=== PATIENT | female | born 1945 | race Caucasian/White ===

== ENCOUNTER 2016-09-09 10:44 | Outpatient (CLI) | payer MEDICARE ==
[2016-09-09 12:18] LABS: #Basophils 0.2 thou/uL (0.0-0.2); #Eosinphils 0.4 thou/uL (0.0-0.7); #Lymphocytes 2.7 thou/uL (1.20-3.40); #Monocytes 0.7 thou/uL (0.11-0.59); #Neutrophils 6.9 thou/uL (1.40-6.50); %Basophils 1.5 % (0.0-1.0); %Eosinophils 3.3 % (0.0-10.0); %Lymphocytes 24.9 % (21.0-51.0); %Neutrophils 64.3 % (42.0-75.0); Hemoglobin 14.7 g/dL (12.0-16.0); Mean Corpuscular Hemoglobin 28.1 pg (27.0-31.0); Mean Corpuscular Volume 87.6 fl (81.0-99.0); Mean Platelet Volume 8.9 fL (7.4-10.4); Platelet Count 351 thou/uL (130-400); RBC Distribution Width 13.6 % (11.5-14.5); Red Blood Cell (RBC) Count 5.24 mill/uL (4.20-5.40); White Blood Cell (WBC) Count 10.8 thou/uL (4.8-10.8)
[2016-09-09 12:31] LABS: ALT (SGPT) 24 U/L (8-55); AST (SGOT) 22 U/L (5-34); Albumin 4.3 g/dL (3.4-4.8); Alkaline Phosphatase 87 U/L (40-150); Anion Gap 16 mmol/L (10-20); BUN (Urea Nitrogen) 16 mg/dL (9.8-20.1); Bilirubin, Total 0.5 mg/dL (0.2-1.2); Calc. Creatinine Clearance 0 mL/min (70-130); Calcium 9.7 mg/dL (7.8-10.44); Carbon Dioxide 26 mmol/L (23-31); Cardiac Risk 3.8 (Less than 4.5); Chloride 104 mmol/L (98-107); Cholesterol 255 mg/dl (< 200 Desired); Estimated GFR-MDRD 63; Globulin 3.3 g/dL (2.4-3.5); Glucose 92 mg/dL (80-115); HDL Cholesterol 67 mg/dL (>60 Neg Risk); LDL Cholesterol, Calculated 153 mg/dL; Potassium 4.3 mmol/L (3.5-5.1); Protein, Total 7.6 g/dL (6.0-8.3); Sodium 142 mmol/L (136-145); Triglycerides 174 mg/dL (Less than 150)
[2016-09-09 13:12] LABS: Thyroid Stimulating Hormone 2.7353 uIU/mL (0.35-4.94)
== END 2016-09-09 10:45 ==
LOC: HPCALD 10:44
PROVIDERS: ATTEND Family Medicine
DX: Z11.59 Encounter for screening for other viral diseases (principal); I10 Essential (primary) hypertension; E78.5 Hyperlipidemia, unspecified; E55.9 Vitamin D deficiency, unspecified
CPT/HCPCS: 36415; 80053; 80061; 82306; 84443; 85025

== ENCOUNTER 2020-03-23 22:33 | Emergency (ER) | payer MEDICARE, OTHER ==
[~2020-03-23 22:33] MED LIST: Iopamidol 370 76% 100 ML VIAL ONE
[2020-03-23] MEDS ORDERED: Ondansetron ODT 4 MG TAB ONE (22:52)
[2020-03-23] MEDS ORDERED: Metoclopramide HCl 10 MG/2 ML VIAL ONE (23:19)
[2020-03-23] MEDS ORDERED: Fentanyl 100 MCG/2 ML VIAL ONE ×2 (23:19→23:56)
[2020-03-23 23:23] LABS: #Basophils 0.2 thou/uL (0.0-0.2); #Lymphocytes 1.5 thou/uL (1.20-3.40); #Monocytes 0.6 thou/uL (0.11-0.59); #Neutrophils 14.9 thou/uL (1.40-6.50); %Basophils 1.2 % (0.0-1.0); %Eosinophils 0.3 % (0.0-10.0); %Lymphocytes 8.8 % (21.0-51.0); %Monocytes 3.3 % (0.0-10.0); %Neutrophils 86.5 % (42.0-75.0); Hemoglobin 13.4 g/dL (12.0-16.0); Mean Corpuscular HGB CONC 31.7 g/dL (32.0-36.0); Mean Corpuscular Hemoglobin 28.2 pg (27.0-31.0); Mean Corpuscular Volume 89.1 fL (78.0-98.0); Mean Platelet Volume 8.1 fL (7.4-10.4); Platelet Count 391 thou/uL (130-400); Red Blood Cell (RBC) Count 4.76 mill/uL (4.20-5.40); White Blood Cell (WBC) Count 17.2 thou/uL (4.8-10.8)
[2020-03-23 23:24] LABS: ALT (SGPT) 10 U/L (8-55); AST (SGOT) 16 U/L (5-34); Alkaline Phosphatase 74 U/L (40-110); Anion Gap 16 mmol/L (10-20); BUN (Urea Nitrogen) 13 mg/dL (9.8-20.1); Bilirubin, Total 0.4 mg/dL (0.2-1.2); Calc. Creatinine Clearance 0 mL/min (70-130); Calcium 8.9 mg/dL (7.8-10.44); Carbon Dioxide 25 mmol/L (23-31); Chloride 103 mmol/L (98-107); Globulin 4.2 g/dL (2.4-3.5); Glucose 140 mg/dL (83-110); Lipase 23 U/L (8-78); Potassium 3.7 mmol/L (3.5-5.1); Protein, Total 8.2 g/dL (6.0-8.3); Sodium 140 mmol/L (136-145)
[2020-03-24] MEDS ORDERED: Cefepime 2 GM VIAL ONE (00:18)
[2020-03-24] MEDS ORDERED: Ketorolac Tromethamine 30 MG/ML VIAL ONE (00:47)
[2020-03-24] MEDS ORDERED: Acetaminophen 650 MG Suppository ONE (01:03)
[2020-03-24 01:04] LABS: Bilirubin Negative (Negative); Blood, Urine Trace (Negative); Clarity Clear (Clear); Glucose, Urine (Dipstick) 100 mg/dL (Negative); Ketone, Urine Trace mg/dL (Negative); Leukocyte Negative (Negative); Nitrite Negative (Negative); Protein, Urine (Dipstick) 30 mg/dL (Neg-Trace); Urobilinogen 0.2 mg/dL (Less than 2)
[2020-03-24 01:08] LABS: Squamous Epithelial 0-3 HPF (0-3); WBC/HPF 0-3 HPF (0-3)
[2020-03-24 01:09] LABS: Bacteria/HPF Rare-Few HPF (None Seen)
[2020-03-24] MEDS ORDERED: Ibuprofen 200 MG TAB ONE (03:01)
--- NOTE | 2020-03-24 08:35 | CT ---
PRELIMINARY REPORT/[facility]/EMERGENCY AFTER HOURS PROCEDURE: EXAM: CT Chest with Intravenous Contrast. CT Abdomen and Pelvis with Intravenous Contrast CLINICAL HISTORY: TRAUMA PT. FELL 2 DAYS AGO, SERVERE PAIN ON LEFT SIDE, N/V TECHNIQUE: Axial computed tomography images of the chest, abdomen and pelvis with intravenous contrast. CONTRAST: With; 100ML ISO 370 COMPARISON: None provided. FINDINGS: CHEST: LUNGS: No pulmonary mass. No focal airspace consolidation. PLEURAL SPACES: No pleural effusion. No pneumothorax. HEART AND MEDIASTINUM: No cardiomegaly. No significant pericardial effusion. LYMPH NODES: No lymphadenopathy. ABDOMEN AND PELVIS: LIVER: Unremarkable. No focal lesions. GALLBLADDER AND BILE DUCTS: The gallbladder is absent. There is mild prominence of the central biliary ductal system, no stones are identified.. PANCREAS: Unremarkable. SPLEEN: Unremarkable. ADRENAL GLANDS: Unremarkable. KIDNEYS, URETERS, AND BLADDER: There is significant left hydronephrosis with a 6 mm stone at the left ureteropelvic junction. The r ight kidney and collecting system are normal. There is significant streaking of the left perinephric fat.. STOMACH AND BOWEL: No obstruction. No wall thickening. No CT evidence of colitis or acute diverticulitis. A small hiata l hernia is identified. There has been some surgery in the epigastric region. APPENDIX: No CT evidence for appendicitis. PERITONEUM: No free fluid. No free air. LYMPH NODES: No lymphadenopathy. REPRODUCTIVE: Unremarkable as visualized. VASCULATURE: No aortic aneurysm. BONES AND SOFT TISSUES: No acute osseous abnormality. There is been a right hip arthroplasty with slight streak artifact fro m hardware. Moderate degenerative changes of the spine are noted. The soft tissues are unremarkable . IMPRESSION: There is significant left hydronephrosis with a 6 mm stone at the left ureteropelvic junction. There is significant stranding of the left perinephric fat. There is no evidence of intestinal obstruction. The lungs are clear without infiltrate, effusion or pneumothorax.. ELECTRONICALLY SIGNED BY: Cary Mancini DO Mar 24, 2020 12:16:06 AM [employer] This report is intended for review by the ordering physician only, in accordance of law. If you recei ve this report in error, please call [facility] at [phone]. FINAL REPORT CT CHEST WITH IV CONTRAST CT ABDOMEN WITH IV CONTRAST CT PELVIS WITH IV CONTRAST CORONAL AND SAGITTAL REFORMATIONS OF THORACOLUMBAR SPINE: I agree with the preliminary report given by [facility]. There are degenerative changes in the thoracolumbar spine. No acute fracture or subluxation is seen. POS: OFF
== END 2020-03-24 04:58 | disposition short-term general hospital (02) ==
LOC: BURERS 22:33
DX: A41.9 Sepsis, unspecified organism (principal); N13.2 Hydronephrosis with renal and ureteral calculous obstruction; I10 Essential (primary) hypertension; E78.00 Pure hypercholesterolemia, unspecified; M19.90 Unspecified osteoarthritis, unspecified site; Z79.899 Other long term (current) drug therapy
CPT/HCPCS: 71260; 74177; 80053; 81003; 81015; 83605; 83690; 84484; 85025; 87040; 87077; 87149; 87186; 93005; 94760; 96365; 96367; 96375; 96376; J0692; J1885; J2765; J3010; J3370; Q0162; Q9967

== ENCOUNTER 2020-07-29 15:32 | Emergency (ER) | payer MEDICARE ==
[2020-07-29] MEDS ORDERED: diphenhydrAMINE 25 MG CAP ONE (16:24)
[2020-07-29] MEDS ORDERED: Famotidine 20 MG TAB ONE (16:24)
[2020-07-29] MEDS ORDERED: predniSONE 20 MG TAB ONE (16:24)
== END 2020-07-29 17:47 | disposition home or self-care (01) ==
LOC: BURERS 15:32
DX: R22.0 Localized swelling, mass and lump, head (principal); R00.2 Palpitations; R10.9 Unspecified abdominal pain; R11.0 Nausea; T36.8X5A Adverse effect of other systemic antibiotics, initial encounter; I10 Essential (primary) hypertension; M19.90 Unspecified osteoarthritis, unspecified site; E78.00 Pure hypercholesterolemia, unspecified; Z79.899 Other long term (current) drug therapy
CPT/HCPCS: 99284; J7512; Q0163